=== PATIENT | male | born 1985 | race American Indian/Alaskan Native ===

== ENCOUNTER 2018-07-20 03:00 | Inpatient (IN) | payer OTHER ==
[2018-07-20] MEDS ORDERED: MORPHINE IV ONE (03:08)
[2018-07-20 03:25] LABS: Basophils % (Auto) 0.7 % (0.0-1.8); Eosinophils % (Auto) 0.5 % (0.0-4.3); Hematocrit 39.8 % (35.5-45.6); Hemoglobin 13.2 gm/dl (11.8-15.2); Lymphocytes # (Auto) 1.1 K/mm3 (1.2-5.4); Lymphocytes % (Auto) 21.4 % (13.4-35.0); Mean Corpuscular HGB Conc 33 % (32-34); Mean Corpuscular Volume 87 fl (84-94); Monocytes # (Auto) 0.5 K/mm3 (0.0-0.8); Monocytes % (Auto) 10.3 % (0.0-7.3); Platelet Count 224 K/mm3 (140-440); Red Blood Count 4.59 M/mm3 (3.65-5.03); Red Cell Distribution Width 14.3 % (13.2-15.2)
--- NOTE | 2018-07-20 03:27 | Emergency Department Report ---
HPI - General Chief Complaint: Extremity Injury, Lower Time Seen by Provider: 07/20/18 03:08 - HPI HPI: 33-year-old -[place] male presents to the emergency Department, through triage, with complaint of pain to the bilateral lower extremities pain after jumping out of a second-story window and landing on his feet. He says that he has pain from the knees down to the toes on both legs. He denies any pain to the hips, pelvis, back, neck, head. He denies hitting his head or any loss of consciousness. He was wearing some rubber slip-on shoes at the time. He denies any past medical history. He did not take anything for his symptoms prior to arrival. ED Past Medical Hx - Social History Smoking Status: Current Every Day Smoker Substance Use Type: Alcohol, Marijuana ED Review of Systems ROS: Stated complaint: LEG INJURY Other details as noted in HPI Constitutional: denies: chills, fever Eyes: denies: eye pain, vision change ENT: denies: ear pain, throat pain Respiratory: denies: cough, shortness of breath Cardiovascular: denies: chest pain, palpitations Gastrointestinal: denies: abdominal pain, vomiting Genitourinary: denies: dysuria, discharge Musculoskeletal: arthralgia, myalgia Skin: denies: rash, lesions Neurological: denies: headache, confusion Physical Exam - Physical Exam Physical Exam: GENERAL: The patient is well-developed well-nourished. HENT: Normocephalic. Atraumatic. Patient has moist mucous membranes. EYES: Extraocular motions are intact. Pupils equal reactive to light bilaterally. NECK: Supple. Trachea is midline. CHEST/LUNGS: Clear to auscultation. There is no respiratory distress noted. HEART/CARDIOVASCULAR: Regular. There is no tachycardia. There is no murmur. ABDOMEN: Abdomen is soft, nontender. Patient has normal bowel sounds. There is no abdominal distention. SKIN: Skin is warm and dry. NEURO: The patient is awake, alert, and oriented. The patient is cooperative. The patient has no focal neurologic deficits. The patient has normal speech. MUSCULOSKELETAL: There is severe tenderness to palpation to the bilateral feet, worst at the heels. There is some mild tenderness to palpation of the bilateral tib-fib. No tenderness to palpation with compression of the pelvis. Decreased range of motion of the bilateral feet, ankles and lower extremity secondary to pain. Pedal pulses +2 over 4 bilaterally with capillary refill less than 2 seconds. BACK: No midline thoracic or lumbar tenderness to palpation, step-off or deformity. ED Course - Consultations Consultation #1: 07/20/18 05:41 I spoke with the orthopedist on-call, Dr. Gilmore, who is aware of the patient's mechanism and injury including bilateral comminuted calcaneal fractures. Dr. Gilmore has agreed to see this patient as a consult like the patient admitted to the hospitalist service. ED Medical Decision Making - Lab Data Result diagrams: 07/20/18 03:10 07/20/18 03:10 - EKG Data -: EKG Interpreted by Me EKG shows normal: sinus rhythm, axis, intervals, QRS complexes, ST-T waves (early repolarization) Rate: normal - EKG Data When compared to previous EKG there are: previous EKG unavailable Interpretation: normal EKG - Radiology Data Radiology results: image reviewed interpreted by me: X-ray of the bilateral feet shows bilateral comminuted calcaneal fractures with some displacement with right greater than left. X-ray of the bilateral tib-fib do not show any fracture, dislocation or any acute process. X-ray of the lumbar spine does not show any fracture, subluxation, or any acute process. - Medical Decision Making This patient presents after jumping out of a second-story window and landing on his feet in shoes that are essentially rubber slippers. He has significant bilateral feet pain that radiates up his legs towards the knees. The patient has intact pedal pulses and capillary refill. There is some obvious swelling around the heel as well as the patient is most tender. X-rays of the bilateral feet shows bilateral calcaneal fractures with some displacement with right greater than left. X-rays of the tib-fib bilaterally were unremarkable. I spoke with the orthopedist who has agreed to see the patient has a consult. Patient's labs were unremarkable other than a blood alcohol level of 0.15. The patient will be admitted to the hospital for further evaluation and treatment and was accepted for admission by the hospitalist, Dr. Helm. - Differential Diagnosis foot fractures, ankle fractures, lumbar spine fracture, sprain, strain Critical Care Time: No Critical care attestation.: If time is entered above; I have spent that time in minutes in the direct care of this critically ill patient, excluding procedure time. ED Disposition Clinical Impression: Bilateral calcaneal fractures Qualifiers: Encounter type: initial encounter Fracture type: closed Qualified Code(s): S92.001A - Unspecified fracture of right calcaneus, initial encounter for closed fracture; S92.002A - Unspecified fracture of left calcaneus, initial encounter for closed fracture Alcohol intoxication Qualifiers: Complication of substance-induced condition: uncomplicated Qualified Code(s): F10.920 - Alcohol use, unspecified with intoxication, uncomplicated Disposition: DC-09 OP ADMIT IP TO THIS HOSP Is pt being admited?: Yes Condition: Fair Time of Disposition: 05:46
[2018-07-20] MEDS ORDERED: DILAUDID ONE ×2 (03:29→12:03)
[2018-07-20] MEDS ORDERED: DILAUDID IV ONE ×2 (03:31→04:10)
[2018-07-20 03:44] LABS: Calcium 9.6 mg/dL (8.4-10.2); Hemolysis Index 12
--- NOTE | 2018-07-20 04:06 | XRay Report ---
PROCEDURE: XR FOOT BILAT 2V TECHNIQUE: BILATERAL foot radiographs, AP and lateral views. HISTORY: Foot pain Trauma COMPARISONS: None . FINDINGS: Fracture (s) and/or Dislocation(s): Bilateral comminuted calcaneal fractures are identified. Right f racture is more displaced than left. The remaining osseous structures are intact. . Alignment: Normal . Joint space(s): Mild narrowing of joint spaces . Soft tissues: Mild diffuse soft tissue swelling over the plantar surfaces of both feet . Bone mineralization: Normal . Foreign bodies: None . Calcaneal spurring: None . IMPRESSION: Bilateral comminuted calcaneal fractures are identified. The right fracture is more disp laced than the left. The remaining osseous structures appear intact. The mild plantar soft tissue swe lling bilaterally.. This document is electronically signed by Vane Garcia DO., Jul 20 2018 04:03:54 AM ET
--- NOTE | 2018-07-20 04:07 | XRay Report ---
PROCEDURE: XR TIB/FIB BILAT 2V TECHNIQUE: Bilateral tibia and fibula radiographs, AP and lateral views. HISTORY: Bilateral leg pain Trauma COMPARISONS: None. FINDINGS: Fracture (s) and/or Dislocation(s): Bilateral comminuted calcaneal fractures are identified. The rem aining osseous structures are intact.. Joint space(s): Normal. Soft tissues: Mild soft tissue swelling over the plantar surface of both feet. Bone mineralization: Normal. Foreign bodies: None. IMPRESSION: Bilateral comminuted calcaneal fractures. The remaining osseous structures are intact.. This document is electronically signed by Vane Garcia DO., Jul 20 2018 04:05:54 AM ET
--- NOTE | 2018-07-20 04:58 | XRay Report ---
PROCEDURE: XR SPINE LUMBOSACRAL 2-3V TECHNIQUE: 3 views lumbar spine HISTORY: fall from 2nd story. b/l calcaneal fractures COMPARISONS: None FINDINGS: Lumbar lordosis is intact. Vertebral body heights and intervertebral disc spaces are preserved. No listhesis, spondylolysis or other fracture. IMPRESSION: No lumbar spine fracture or gross malalignment identified. Consider follow-up CT if patient has low b ack pain. This document is electronically signed by Brennan Carpenter MD., Jul 20 2018 04:56:39 AM ET
[2018-07-20 05:16] LABS: BUN/Creatinine Ratio 11; Blood Urea Nitrogen 11 mg/dL (9-20)
[2018-07-20 05:43] LABS: INR 0.88 (0.87-1.13)
[2018-07-20] MEDS ORDERED: SODIUM CHLORIDE FLUSH SYRINGE 10 ML IV PRN (05:44)
[2018-07-20] MEDS ORDERED: TYLENOL PO PRN (05:44)
[2018-07-20] MEDS ORDERED: ZOFRAN IV PRN (05:44)
[2018-07-20] MEDS ORDERED: NACL 0.9% 1000 ML 1,000 ML IV ONE (05:48)
[2018-07-20] MEDS ORDERED: APRESOLINE IV PRN (05:48)
--- NOTE | 2018-07-20 05:57 | History and Physical Report ---
History of Present Illness Date of examination: 07/20/18 Chief complaint: Bilateral ankle pain with swelling History of present illness: Patient is a 33-year-old -[place] male with history of asthma who presented to the ED on account of bilateral ankle pain with swelling. Patient stated that his girlfriend came to his home while he was with another female and in order to avoid confrontation with her , he decided to jump out of the window. He jumped from a two-story building and landed on his feet. Subsequently, he started experiencing pain and was unable to walk. He denies lower back pain, head trauma or pain/weakness in other parts of his body. No chest pain, shortness of breath, palpitation, abdominal pain, nausea, vomiting, headaches, dizziness, syncope or loss of consciousness. Past History Past Medical History: other (Asthma) Past Surgical History: No surgical history Social history: smoking (He has 15 years hx of cigarette smoking. He currently smokes 1 pack/2days. He admits to occasional alcohol and marijuana use. He denies other illicit drug use) Family history: other (significant for hypertension and diabetes in both parents) Medications and Allergies Allergies Allergy/AdvReac Type Severity Reaction Status Date / Time No Known Allergies Allergy Unverified 07/20/18 03:24 Active Meds: Active Medications Acetaminophen (Tylenol) 650 mg PO Q4H PRN PRN Reason: Pain MILD(1-3)/Fever >100.5/MAGAÑA Enoxaparin Sodium (Lovenox) 40 mg SUB-Q QDAY ALISA Hydralazine HCl (Apresoline) 10 mg IV Q4HR PRN PRN Reason: Blood Pressure Hydromorphone HCl (Dilaudid) 1 mg IV Q3H PRN PRN Reason: Pain , Severe (7-10) Potassium Chloride/Sodium Chloride (Ns/Kcl 20meq) 20 meq in 1,000 mls @ 100 mls/hr IV DIRECT ALISA Sodium Chloride (Nacl 0.9% 1000 Ml) 1,000 mls @ 999 mls/hr IV BOLUS ONE Stop: 07/20/18 06:48 Ondansetron HCl (Zofran) 4 mg IV Q8H PRN PRN Reason: Nausea And Vomiting Oxycodone/Acetaminophen (Percocet 5/325) 2 tab PO Q4H PRN PRN Reason: Pain, Moderate (4-6) Sodium Chloride (Sodium Chloride Flush Syringe 10 Ml) 10 ml IV BID ALISA Sodium Chloride (Sodium Chloride Flush Syringe 10 Ml) 10 ml IV PRN PRN PRN Reason: LINE FLUSH Review of Systems All systems: negative (except as documented in the HPI, 14 point system reviewed were negative) Exam - Constitutional Vitals: Temp Pulse Resp BP Pulse Ox 98.3 F 76 15 146/102 100 07/20/18 03:16 07/20/18 04:09 07/20/18 04:09 07/20/18 04:09 07/20/18 04:09 General appearance: Present: no acute distress - EENT Eyes: Present: PERRL, EOM intact ENT: hearing intact, clear oral mucosa - Neck Neck: Present: supple - Respiratory Respiratory effort: normal Respiratory: bilateral: CTA - Cardiovascular Rhythm: regular Heart Sounds: Present: S1 & S2 - Extremities Extremities: pulses symmetrical Extremity abnormal: edema (both ankles, right > left) - Abdominal General gastrointestinal: Present: soft, non-tender, non-distended, normal bowel sounds - Rectal Rectal Exam: deferred - Integumentary Integumentary: Present: clear, warm, dry - Musculoskeletal Musculoskeletal: strength equal bilaterally - Psychiatric Psychiatric: appropriate mood/affect, intact judgment & insight - Neurologic Neurologic: CNII-XII intact Results - Labs CBC & Chem 7: 07/20/18 03:10 07/20/18 03:10 Labs: Laboratory Last Values WBC 5.0 K/mm3 (4.5-11.0) 07/20/18 03:10 RBC 4.59 M/mm3 (3.65-5.03) 07/20/18 03:10 Hgb 13.2 gm/dl (11.8-15.2) 07/20/18 03:10 Hct 39.8 % (35.5-45.6) 07/20/18 03:10 MCV 87 fl (84-94) 07/20/18 03:10 MCH 29 pg (28-32) 07/20/18 03:10 MCHC 33 % (32-34) 07/20/18 03:10 RDW 14.3 % (13.2-15.2) 07/20/18 03:10 Plt Count 224 K/mm3 (140-440) 07/20/18 03:10 Lymph % (Auto) 21.4 % (13.4-35.0) 07/20/18 03:10 [place] % (Auto) 10.3 % (0.0-7.3) H 07/20/18 03:10 Eos % (Auto) 0.5 % (0.0-4.3) 07/20/18 03:10 Baso % (Auto) 0.7 % (0.0-1.8) 07/20/18 03:10 Lymph # 1.1 K/mm3 (1.2-5.4) L 07/20/18 03:10 [place] # 0.5 K/mm3 (0.0-0.8) 07/20/18 03:10 Eos # 0.0 K/mm3 (0.0-0.4) 07/20/18 03:10 Baso # 0.0 K/mm3 (0.0-0.1) 07/20/18 03:10 Seg Neutrophils % 67.1 % (40.0-70.0) 07/20/18 03:10 Seg Neutrophils # 3.4 K/mm3 (1.8-7.7) 07/20/18 03:10 PT 12.5 Sec. (12.2-14.9) 07/20/18 05:23 INR 0.88 (0.87-1.13) 07/20/18 05:23 Sodium 138 mmol/L (137-145) 07/20/18 03:10 Potassium 3.6 mmol/L (3.6-5.0) 07/20/18 03:10 Chloride 100.6 mmol/L (98-107) 07/20/18 03:10 Carbon Dioxide 21 mmol/L (22-30) L 07/20/18 03:10 20 mmol/L 07/20/18 03:10 BUN 11 mg/dL (9-20) 07/20/18 03:10 1.0 mg/dL (0.8-1.5) 07/20/18 03:10 Estimated GFR > 60 ml/min 07/20/18 03:10 11 % 07/20/18 03:10 Glucose 99 mg/dL (75-100) 07/20/18 03:10 Calcium 9.6 mg/dL (8.4-10.2) 07/20/18 03:10 712 units/L (55-170) H 07/20/18 03:10 Plasma/Serum Alcohol 0.15 % (0-0.07) H 07/20/18 03:10 Assessment and Plan Assessment and plan: Bilateral traumatic comminuted calcaneal fractures -On pain management -Orthopedic surgery consulted Mild rhabdomyolysis -On IV fluid, will monitor CK level Asthma -No acute exacerbation -On PRN albuterol neb Mild metabolic acidosis -On IV fluid, will monitor bicarbonate level Elevated blood pressure -Probably secondary to pain -On when necessary narcotic and antihypertensive Polysubstance abuse (tobacco or marijuana) -Cessation recommended DVT prophylaxis with Lovenox Disposition: Discharge planning after surgery Time spent: 38 minutes
[2018-07-20] MEDS: DILAUDID IV PRN ×8 (06:09→23:10)
[2018-07-20] MEDS ORDERED: PROVENTIL IH PRN (08:00)
[2018-07-20] MEDS ORDERED: APRESOLINE ONE (09:44)
[2018-07-20] MEDS ORDERED: LOVENOX SUB-Q ONE (09:45)
[2018-07-20] MEDS: LOVENOX SUB-Q SCH (10:02)
[2018-07-20] MEDS: NS/KCL 20MEQ 20 MEQ/1,000 ML BAG IV SCH (10:03)
[2018-07-20] MEDS: SODIUM CHLORIDE FLUSH SYRINGE 10 ML IV SCH ×2 (10:47→21:39)
[2018-07-20] MEDS ORDERED: PERCOCET 5/325 ONE ×2 (12:03→14:26)
[2018-07-20] MEDS: PERCOCET 5/325 PO PRN ×3 (12:06→21:38)
--- NOTE | 2018-07-20 16:29 | Consultation ---
History of Present Illness - HPI Consult date: 07/20/18 Consult reason: fracture History of present illness: 33 y/o male with c/o bilateral heel pain and swelling after jumping from window earlier today, unable to weight bear on either LE's seen in ED where xrays taken reveal fx calcaneus bilaterally... Past History Past Medical History: other (Asthma) Past Surgical History: No surgical history Social history: smoking (He has 15 years hx of cigarette smoking. He currently smokes 1 pack/2days. He admits to occasional alcohol and marijuana use. He denies other illicit drug use) Family history: other (significant for hypertension and diabetes in both parents) Medications and Allergies Allergies Allergy/AdvReac Type Severity Reaction Status Date / Time No Known Allergies Allergy Unverified 07/20/18 03:24 Home Medications Medication Instructions Recorded Confirmed Last Taken Type No Known Home Medications [No 07/20/18 07/20/18 Unknown History Reported Home Medications] Active Meds: Active Medications Acetaminophen (Tylenol) 650 mg PO Q4H PRN PRN Reason: Pain MILD(1-3)/Fever >100.5/MAGAÑA Albuterol (Proventil) 2.5 mg IH Q4HRT PRN PRN Reason: Shortness Of Breath Enoxaparin Sodium (Lovenox) 40 mg SUB-Q QDAY ALISA Last Admin: 07/20/18 10:02 Dose: 40 mg Documented by: Hydralazine HCl (Apresoline) 10 mg IV Q4H PRN PRN Reason: Blood Pressure Last Admin: 07/20/18 10:02 Dose: 10 mg Documented by: Hydromorphone HCl (Dilaudid) 2 mg IV Q4H PRN PRN Reason: Pain , Severe (7-10) Last Admin: 07/20/18 14:11 Dose: 2 mg Documented by: Potassium Chloride/Sodium Chloride (Ns/Kcl 20meq) 20 meq in 1,000 mls @ 100 mls/hr IV DIRECT ALISA Last Admin: 07/20/18 10:03 Dose: 100 mls/hr Documented by: Ondansetron HCl (Zofran) 4 mg IV Q8H PRN PRN Reason: Nausea And Vomiting Oxycodone/Acetaminophen (Percocet 5/325) 2 tab PO Q4H PRN PRN Reason: Pain, Moderate (4-6) Last Admin: 07/20/18 12:06 Dose: 2 tab Documented by: Sodium Chloride (Sodium Chloride Flush Syringe 10 Ml) 10 ml IV BID ALISA Last Admin: 07/20/18 10:47 Dose: Not Given Documented by: Sodium Chloride (Sodium Chloride Flush Syringe 10 Ml) 10 ml IV PRN PRN PRN Reason: LINE FLUSH Physical Examination - Physical exam Narrative exam: Bilateral heel - moderate swelling, skin intact, tender at heels, decreased active ROM at subtalar joints Assessment and Plan Bilateral calcaneal fractures will obtain CT scan heels prior to surgery
--- NOTE | 2018-07-20 17:01 | Event Note ---
Date: 07/20/18 Patient was admitted this morning with bilateral calcaneal fractures secondary to Fall, evaluated by orthopedic surgeon, recommend CT lower extremities Medical records reviewed, agree with the current plan.
--- NOTE | 2018-07-20 21:11 | Cat Scan Report ---
PROCEDURE: CT LOWER EXTREMITY LT WO CON TECHNIQUE: Computerized axial tomography of the left lower extremity was performed without contrast. CT DOSE LENGTH PRODUCT: mGycm HISTORY: hx of fall from height, xray reveal fx os calcaneu COMPARISONS: None . FINDINGS: There is a comminuted acute fracture involving left calcaneus with maximal displacement of the fragme nts by about 6 mm. The fracture line is reaching the calcaneocuboid joint and subtalar joint. There i s subluxation of the calcaneocuboid joint. A small ossific density measuring 4 mm is noted along the posterior aspect of distal tibial metaphysis most likely representing an avulsion fracture. Moderate degree soft tissue swelling is noted. There are no radiopaque foreign bodies. IMPRESSION: Comminuted fracture calcaneus with subluxation of the calcaneocuboid joint. A small avulsion fracture is suspected at the posterior margin of the distal tibial metaphysis. This document is electronically signed by Nathan Ross MD., Jul 20 2018 09:10:01 PM ET
--- NOTE | 2018-07-20 21:16 | Cat Scan Report ---
PROCEDURE: CT LOWER EXTREMITY RT WO CON TECHNIQUE: Computerized axial tomography of the right lower [address] was [address] DOSE LENGTH PRODUCT: mGycm HISTORY: comminuted right calcaneal fracture COMPARISONS: None . FINDINGS: There is comminuted fracture of the calcaneus without significant displacement of the fracture fragme nts. The fracture lines are reaching calcaneocuboid and subtalar joints. There is subluxation of subt alar joint. A small ossific density measuring 3 mm is noted along the lateral margin talus most likel y representing a small avulsion fracture. Moderate degree soft tissue swelling is noted. There are no radiopaque foreign bodies. IMPRESSION: Comminuted fracture of calcaneus with subluxation of the subtalar joint. A small avulsion fracture fragment is suspected lateral to the talus. This document is electronically signed by Nathan Ross MD., Jul 20 2018 09:14:32 PM ET
[2018-07-21] MEDS: FLEXERIL PO PRN ×2 (00:12→13:43)
[2018-07-21] MEDS: PERCOCET 5/325 PO PRN ×2 (02:51→18:00)
[2018-07-21] MEDS ORDERED: ATIVAN IV PRN ×2 (04:18)
[2018-07-21 05:02] LABS: Basophils # (Auto) 0.1 K/mm3 (0.0-0.1); Basophils % (Auto) 0.8 % (0.0-1.8); Eosinophils # (Auto) 0.1 K/mm3 (0.0-0.4); Eosinophils % (Auto) 1.2 % (0.0-4.3); Hematocrit 36.6 % (35.5-45.6); Hemoglobin 12.2 gm/dl (11.8-15.2); Lymphocytes # (Auto) 1.1 K/mm3 (1.2-5.4); Lymphocytes % (Auto) 15.6 % (13.4-35.0); Mean Corpuscular HGB Conc 33 % (32-34); Mean Corpuscular Volume 87 fl (84-94); Monocytes % (Auto) 14.2 % (0.0-7.3); Platelet Count 192 K/mm3 (140-440); Red Blood Count 4.23 M/mm3 (3.65-5.03); Red Cell Distribution Width 14.1 % (13.2-15.2)
[2018-07-21] MEDS: DILAUDID IV PRN ×4 (05:11→20:52)
[2018-07-21] MEDS: NS/KCL 20MEQ 20 MEQ/1,000 ML BAG IV SCH ×2 (05:12→22:10)
[2018-07-21 05:13] LABS: BUN/Creatinine Ratio 14; Blood Urea Nitrogen 13 mg/dL (9-20); Calcium 8.8 mg/dL (8.4-10.2); Hemolysis Index 3
[2018-07-21] MEDS: LOVENOX SUB-Q SCH (10:05)
[2018-07-21] MEDS: SODIUM CHLORIDE FLUSH SYRINGE 10 ML IV SCH ×2 (10:05→22:13)
--- NOTE | 2018-07-21 15:07 | Progress Note ---
Assessment and Plan Assessment and plan: --Bilateral traumatic comminuted calcaneal fractures Secondary to fall, continue pain medications Orthopedic evaluated and following the patient --Mild rhabdomyolysis -On IV fluid, will monitor CK level --H/O Asthma : stable --Mild metabolic acidosis: Resolved On IV fluid, --Mild hypertension; probably secondary to stress and pain Present medications with when necessary hydralazine, --Polysubstance abuse (tobacco or marijuana, alcohol) Cessation recommended --DVT prophylaxis with Lovenox Disposition: Per orthopedic surgery Monitor the patient and adjust management as needed Plan of care discussed with the patient and family members at the bedside History Interval history: Patient seen and examined medical records reviewed Patient is very upset and angry and agitated Complaints of pain, on IV Dilaudid and oral Percocet Vital signs reviewed multiple family members at the bedside including his father Vital signs noted Hospitalist Physical - Constitutional Vitals: Temp Pulse Resp BP Pulse Ox 98.3 F 76 18 159/102 99 07/21/18 02:37 07/20/18 16:00 07/21/18 05:11 07/21/18 02:37 07/20/18 15:13 General appearance: Present: no acute distress, well-nourished - Extremities Extremities: abnormal (bilateral lower extremities dressings on the ankle and foot) - Psychiatric Psychiatric: appropriate mood/affect, agitated, other (upset) - Neurologic Neurologic: moves all extremities Results - Labs CBC & Chem 7: 07/21/18 04:41 07/21/18 04:41 Labs: Laboratory Last Values WBC 7.2 K/mm3 (4.5-11.0) 07/21/18 04:41 RBC 4.23 M/mm3 (3.65-5.03) 07/21/18 04:41 Hgb 12.2 gm/dl (11.8-15.2) 07/21/18 04:41 Hct 36.6 % (35.5-45.6) 07/21/18 04:41 MCV 87 fl (84-94) 07/21/18 04:41 MCH 29 pg (28-32) 07/21/18 04:41 MCHC 33 % (32-34) 07/21/18 04:41 RDW 14.1 % (13.2-15.2) 07/21/18 04:41 Plt Count 192 K/mm3 (140-440) 07/21/18 04:41 Lymph % (Auto) 15.6 % (13.4-35.0) 07/21/18 04:41 [place] % (Auto) 14.2 % (0.0-7.3) H 07/21/18 04:41 Eos % (Auto) 1.2 % (0.0-4.3) 07/21/18 04:41 Baso % (Auto) 0.8 % (0.0-1.8) 07/21/18 04:41 Lymph # 1.1 K/mm3 (1.2-5.4) L 07/21/18 04:41 [place] # 1.0 K/mm3 (0.0-0.8) H 07/21/18 04:41 Eos # 0.1 K/mm3 (0.0-0.4) 07/21/18 04:41 Baso # 0.1 K/mm3 (0.0-0.1) 07/21/18 04:41 Seg Neutrophils % 68.2 % (40.0-70.0) 07/21/18 04:41 Seg Neutrophils # 4.9 K/mm3 (1.8-7.7) 07/21/18 04:41 PT 12.5 Sec. (12.2-14.9) 07/20/18 05:23 INR 0.88 (0.87-1.13) 07/20/18 05:23 Sodium 136 mmol/L (137-145) L 07/21/18 04:41 Potassium 3.9 mmol/L (3.6-5.0) 07/21/18 04:41 Chloride 100.3 mmol/L (98-107) 07/21/18 04:41 Carbon Dioxide 24 mmol/L (22-30) 07/21/18 04:41 16 mmol/L 07/21/18 04:41 BUN 13 mg/dL (9-20) 07/21/18 04:41 0.9 mg/dL (0.8-1.5) 07/21/18 04:41 Estimated GFR > 60 ml/min 07/21/18 04:41 14 % 07/21/18 04:41 Glucose 101 mg/dL (75-100) H 07/21/18 04:41 Calcium 8.8 mg/dL (8.4-10.2) 07/21/18 04:41 1617 units/L (55-170) H 07/21/18 04:41 Plasma/Serum Alcohol 0.15 % (0-0.07) H 07/20/18 03:10 Active Medications - Current Medications Current Medications: Generic Name Dose Route Start Last Admin Trade Name Freq PRN Reason Stop Dose Admin Acetaminophen 650 mg 07/20/18 05:44 Tylenol PO Q4H PRN Pain MILD(1-3)/Fever >100.5/MAGAÑA Albuterol 2.5 mg 07/20/18 08:00 Proventil IH Q4HRT PRN Shortness Of Breath Cyclobenzaprine HCl 5 mg 07/20/18 23:14 07/21/18 13:43 Flexeril PO 5 mg Q8H PRN Administration Muscle Spasm Enoxaparin Sodium 40 mg 07/20/18 09:33 07/20/18 10:02 Lovenox SUB-Q 40 mg QDAY ALISA Administration Hydralazine HCl 10 mg 07/20/18 05:48 07/20/18 10:02 Apresoline IV 10 mg Q4H PRN Administration Blood Pressure Hydromorphone HCl 2 mg 07/20/18 14:02 07/21/18 13:43 Dilaudid IV 2 mg Q4H PRN Administration Pain , Severe (7-10) Potassium Chloride/Sodium Chloride 20 meq in 1,000 mls @ 100 mls/hr 07/20/18 06:00 07/21/18 05:12 Ns/Kcl 20meq IV 100 mls/hr DIRECT ALISA Administration Lorazepam 2 mg 07/21/18 04:18 Ativan IV Q1HR PRN CIWA-Ar 8-15 Lorazepam 4 mg 07/21/18 04:18 Ativan IV Q1HR PRN CIWA-Ar 16-25 Ondansetron HCl 4 mg 07/20/18 05:44 Zofran IV Q8H PRN Nausea And Vomiting Oxycodone/Acetaminophen 2 tab 07/20/18 05:44 07/21/18 02:51 Percocet 5/325 PO 2 tab Q4H PRN Administration Pain, Moderate (4-6) Sodium Chloride 10 ml 07/20/18 09:33 07/20/18 21:39 Sodium Chloride Flush Syringe 10 Ml IV 10 ml BID ALISA Administration Sodium Chloride 10 ml 07/20/18 05:44 Sodium Chloride Flush Syringe 10 Ml IV PRN PRN LINE FLUSH
--- NOTE | 2018-07-21 17:43 | Progress Note ---
Assessment and Plan Bilateral calcaneal fractures with significant bony comminution Discussed treatment options with the patient placed on the radiographic findings of severe comminution and intra-articular involvement I recommended conservative treatment with compression dressings for now followed by either casting or walking. Patient will more likely be unable to ambulate for at least 1 month followed by physical therapy for gait training patient may ultimately require surgeries such as a subtalar fusion if his pain persists past 6 months to 1 year Subjective Date of service: 07/21/18 Interval history: Complaining of pain in both heels CT scan done will discuss results with patient Objective Vital signs: Vital Signs - 12hr 07/21/18 07/21/18 07/21/18 07:59 08:00 11:45 Temperature 99.6 F Pulse Rate 99 H Respiratory 18 Rate Blood Pressure 135/86 135/86 O2 Sat by Pulse 99 Oximetry 07/21/18 07/21/18 16:55 16:56 Temperature 100.0 F H Pulse Rate 106 H 100 H Respiratory 18 Rate Blood Pressure 144/94 O2 Sat by Pulse 92 97 Oximetry Narrative Exam: CT scan of both heels were reviewed by me and show severe comminution at the right calcaneus and subtalar joint region on the left patient was noted to have mild displacement of fracture fragments overall alignment acceptable - Labs CBC & BMP: 07/21/18 04:41 07/21/18 04:41 Labs: Abnormal lab results 07/21/18 07/21/18 Range/Units 04:41 04:41 [place] % (Auto) 14.2 H (0.0-7.3) % Lymph # 1.1 L (1.2-5.4) K/mm3 [place] # 1.0 H (0.0-0.8) K/mm3 Sodium 136 L (137-145) mmol/L Glucose 101 H (75-100) mg/dL Total Creatine Kinase 1617 H (55-170) units/L
[2018-07-21] MEDS ORDERED: AMBIEN PO PRN (22:00)
[2018-07-22] MEDS: DILAUDID IV PRN ×2 (04:55→11:05)
[2018-07-22] MEDS: PERCOCET 5/325 PO PRN ×2 (06:45→14:00)
[2018-07-22 09:20] LABS: BUN/Creatinine Ratio 9; Blood Urea Nitrogen 7 mg/dL (9-20); Calcium 8.8 mg/dL (8.4-10.2); Hemolysis Index 1
[2018-07-22] MEDS: SODIUM CHLORIDE FLUSH SYRINGE 10 ML IV SCH (09:47)
[2018-07-22] MEDS: LOVENOX SUB-Q SCH (09:47)
[2018-07-22 13:11] VITALS: BP 136/89
--- NOTE | 2018-07-22 13:43 | Progress Note ---
Assessment and Plan Bilateral calcaneal fracture recommendations - due to the severe comminution and intra-articular involvement on the right surgical repair might not be successful in obtain anatomic tenriism and preventing traumatic arthritis, More than likely will require hindfoot fusion in near future. Subjective Date of service: 07/22/18 Interval history: met with the patient this afternoon to discussed treatment options, based on the CT scan findings which show severe comminution on the right and minimal displacement of fracture fragments on the left, I have recommended conservative treatment with compression dressing followed walking boot, physical therapy... Objective Vital signs: Vital Signs - 12hr 07/22/18 07/22/18 07/22/18 04:54 07:48 12:31 Temperature 99.5 F 97.9 F 98.3 F Pulse Rate 87 93 H 94 H Respiratory 17 18 18 Rate Blood Pressure 137/101 98/76 136/89 O2 Sat by Pulse 97 94 100 Oximetry Narrative Exam: CT scan of both heels were reviewed by me and show severe comminution at the right calcaneus and subtalar joint region on the left patient was noted to have mild displacement of fracture fragments overall alignment acceptable - Labs CBC & BMP: 07/21/18 04:41 07/22/18 08:47 Labs: Abnormal lab results 07/22/18 Range/Units 08:47 BUN 7 L (9-20) mg/dL Total Creatine Kinase 1385 H (55-170) units/L
--- NOTE | 2018-07-22 14:01 | Discharge Summary ---
Providers - Providers Date of Admission: 07/20/18 05:44 Date of discharge: 07/22/18 Attending physician: JARET BOSTON 07/20/18 05:05 Consult to Physician [CONS] Routine Comment: Dr. Hutchison spoke with Dr. Gilmore @ [id number] Consulting Provider: CHARLES GILMORE Physician Instructions: Reason For Exam: bilateral calcaneal fractures Primary care physician: [facility], Hospitalization Reason for admission: s/p fall, bilateral heel and ankle swelling Condition: Fair Pertinent studies: Rishabh LE CT Xray: foot xray Xray: tibia fibula Xray lumbar spine Hospital course: 33-year-old -[place] male patient with history of asthma was admitted through ER with h/o fall and injuries to bilateral ankle and heels with pain with swelling which he sustained when he jumped out of the window of a [address] building. Subsequently, he started experiencing pain and was unable to walk. He denies lower back pain, head trauma or pain/weakness in other parts of his body. No chest pain, shortness of breath, palpitation, abdominal pain, nausea, vomiting, headaches, dizziness, syncope or loss of consciousness.Findings of rishabh LE CT and xrays are consistant with rishabh comminuted calcaneal fractures.Patient also had rhabdomyolysis.Symptomatically managed,evaluated by orthopedics managed symptomatically and recommended Discharge Diagnosis: --Bilateral traumatic calcaneal fracture Orthopedic recommendations - due to the severe comminution and intra-articular involvement on the right surgical repair might not be successful in obtain anatomic shinto and preventing traumatic arthritis, More than likely will require hindfoot fusion in near future. Ortho met with the patient and family and discussed treatment options, based on the CT scan findings which show severe comminution on the right and minimal displacement of fracture fragments on the left, recommended conservative treatment with compression dressing followed walking boot, physical therapy... --Mild rhabdomyolysis -On IV fluid, will monitor CK level --H/O Asthma : stable --Mild metabolic acidosis: Resolved --Mild hypertension; resolved,probably secondary to stress and pain Present medications with when necessary hydralazine, --Polysubstance abuse (tobacco or marijuana, alcohol) Cessation recommended --DVT prophylaxis with Lovenox Disposition: Per orthopedic surgery,cleared for discharge,with above recommendations Disposition: - TO HOME OR SELFCARE Time spent for discharge: 33 min Core Measure Documentation - Palliative Care Palliative Care/ Comfort Measures: Not Applicable - Core Measures Any of the following diagnoses?: none Exam - Constitutional Vitals: Temp Pulse Resp BP Pulse Ox 98.3 F 94 H 18 136/89 100 07/22/18 12:31 07/22/18 12:31 07/22/18 12:31 07/22/18 12:31 07/22/18 12:31 General appearance: Present: no acute distress, well-nourished - EENT Eyes: Present: PERRL, EOM intact - Neck Neck: Present: supple, normal ROM - Respiratory Respiratory effort: normal Respiratory: negative: rales, rhonchi, wheezing - Cardiovascular Rhythm: regular Heart Sounds: Present: S1 & S2 - Extremities Extremities: abnormal (rishabh ankle/foot dressing in place) - Abdominal General gastrointestinal: Present: soft, non-tender, non-distended, normal bowel sounds - Integumentary Integumentary: Present: clear, warm - Musculoskeletal Musculoskeletal: strength equal bilaterally - Psychiatric Psychiatric: appropriate mood/affect - Neurologic Neurologic: CNII-XII intact, moves all extremities Plan Activity: other (as per ortho recommendation) Diet: regular Additional Instructions: Ortho recomend conservative treatment with compression dressings for now followed by either casting or walking. f/u orthopedic as advised. Advised plenty oral fluids Follow up with: KYLE VENTURA MD [Primary Care Provider] - 3-5 Days Prescriptions: Zolpidem [Ambien] 5 mg PO QHS PRN #5 tablet PRN Reason: Sleep oxyCODONE /ACETAMINOPHEN [Percocet 5/325 mg] 1 tab PO Q6H PRN #20 tablet PRN Reason: Pain, Moderate (4-6)
== END 2018-07-22 14:30 | disposition home or self-care (01) | DRG 563 ==
LOC: ED 03:00 → SUATTDRO 03:00 → 3B 05:44 → 3B-SURG 13:44
PROVIDERS: ADMIT Internal Medicine; ATTEND Internal Medicine
DX: S92.001A Unspecified fracture of right calcaneus, initial encounter for closed fracture (principal); M62.82 Rhabdomyolysis; E87.2 Acidosis; J45.909 Unspecified asthma, uncomplicated; I10 Essential (primary) hypertension; F19.10 Other psychoactive substance abuse, uncomplicated; F17.210 Nicotine dependence, cigarettes, uncomplicated; F12.90 Cannabis use, unspecified, uncomplicated; S92.002A Unspecified fracture of left calcaneus, initial encounter for closed fracture; F10.920 Alcohol use, unspecified with intoxication, uncomplicated; Y93.89 Activity, other specified; W18.39XA Other fall on same level, initial encounter; Y92.89 Other specified places as the place of occurrence of the external cause; Z72.89 Other problems related to lifestyle; Y99.8 Other external cause status
CPT/HCPCS: 36415; 72100; 80048; 80320; 82550; 85025; 85610; 93005; 93010; G0378; G0480; J0360; J1170; J1650; J2270; J7030